=== PATIENT | female | born 2000 | race Caucasian/White ===

== ENCOUNTER 2022-07-08 01:10 | Emergency (ER) | payer OTHER ==
[~2022-07-08] VITALS: Ht 160 cm; Wt 90.7 kg
[2022-07-08] MEDS ORDERED: CYCLOBENZAPRINE HCL 10 MG TAB PO ONE (02:00)
[2022-07-08] MEDS ORDERED: CYCLOBENZAPRINE HCL 10 MG TAB ONE (02:09)
[2022-07-08] MEDS ORDERED: CYCLOBENZAPRINE10 MG PO (02:14)
[2022-07-08 02:20] VITALS: BP 142/78
== END 2022-07-08 02:20 | disposition home or self-care (01) ==
LOC: FSED 01:34
DX: M54.2 Cervicalgia (principal); M62.838 Other muscle spasm; G40.909 Epilepsy, unspecified, not intractable, without status epilepticus; F99 Mental disorder, not otherwise specified
CPT/HCPCS: 81003; 81025; 99282